=== PATIENT | male | born 1960 ===

== ENCOUNTER 2024-01-24 18:38 | Emergency (ER) | payer OTHER, SELFPAY ==
[2024-01-24 18:39] VITALS: BP 158/86
--- NOTE | 2024-01-24 19:01 | ED.GENMED ---
History of Present Illness
General
Chief Complaint: Abdominal Pain
Source: patient
Exam Limitations: none
Time Seen by Provider: 01/24/24 18:56
Nursing documentation reviewed up to this point in time: agreed with
History of Present Illness
History of Present Illness:
63-year-old male with past medical history of IBS presents emergency to the department today with concerns of epigastric pain, left upper quadrant pain, and belching for the past 7 days. Patient states that he is gotten symptoms of acid reflux
before but has never been like this and usually resolves with Tums. Patient denies any chest pain but states that he will occasionally get some pain at the back of his throat with belching. Patient states that the symptoms do not get worse after
eating certain foods. Patient denies any history of cardiac disease. Patient [place] any family history of cardiac disease. Patient denies any shortness of breath or syncopal episodes. Patient does not have a nursing home assistant administrator. Patient states
that he has been taking lansoprazole 15 mg once daily along with Tums as needed and other [id number] medications. Patient denies daily NSAID use. Patient denies any rectal bleeding, dark tarry stools. Patient denies any nausea or vomiting.
Patient went to urgent care today and was advised to report for the emergency department for further evaluation.
Review of Systems
Review of Systems
All Other Systems: ROS reviewed and negative except as documented in HPI and ROS
Phy Exam
Physical Exam
Physical Exam:
General: Patient is well appearing and in no acute distress; non-toxic
Skin: Warm and dry, no rashes or lesions
Head: Normocephalic, atraumatic
Eyes: Sclera non-icteric. EOMs intact. PERRLA.
Cardiac: Regular rate and rhythm, no murmurs, no tenderness to palpation of the external chest wall
Peripheral Vascular: No lower extremity swelling or edema
Pulm: Normal respiratory effort, no wheezes, rales, rhonchi
Abdomen: No abdominal tenderness to palpation, no palpable masses, no guarding
Neuro: CN II-XII intact, no focal neurologic deficits.
Psychiatric: Appropriate mood and affect.
Course
Orders/Labs/Results
Orders:
Orders
01/24/24 18:43
Electrocardiogram (*1) Urgent
Reason for Study: Chest Pain
EKG- Treatment ONCE
01/24/24 19:17
Pantoprazole [Protonix IV] 40 mg IV NOW STA
01/24/24 19:19
CT Abd/pelvis W Iv Cont Urgent
Comment:
Reason For Exam: LUQ pain
01/24/24 19:23
Complete Blood Count/With Diff Urgent
Comprehensive Metabolic Panel Urgent
Lipase Urgent
Troponin I Urgent
Urinalysis Reflex To Culture Urgent
Date Specimen was Collected: 01/24/24
Time Specimen was Collected: 19:21
Abnormal Lab Results
01/24/24
19:23
MCHC 32.9 L g/dL
(33.0-37.0)
Absolute Monos (auto) 0.7 H 10^3/uL
(0.1-0.6)
Monocytes % 9.5 H %
(1.7-9.3)
BUN 24 H mg/dl
(9-20)
01/24/24 19:23
01/24/24 19:23
Vital Signs
Initial and Last Documented VS:
Initial Vital Signs
Temp Pulse Resp BP Pulse Ox
98 F 67 16 158/86 99
01/24/24 18:39 01/24/24 18:39 01/24/24 18:39 01/24/24 18:39 01/24/24 18:39
Last Documented Vital Signs
Temp Pulse Resp BP Pulse Ox
98 F 64 14 135/96 97
01/24/24 18:39 01/24/24 21:45 01/24/24 21:45 01/24/24 21:02 01/24/24 21:45
MDM/Problems Addressed
Differential Diagnosis Includes:
Differentials include gastritis, duodenitis, angina, gastroenteritis, esophageal cancer, pancreatitis, cholecystitis
MDM/Problems Addressed:
63-year-old male with a past medical history presents emergency department today with persistent belching, sore throat, and abdominal discomfort. He denies chest pain. Was sent by urgent care for further evaluation. Has been taking 50 mg of
lansoprazole daily without relief. CBC and CMP are unremarkable, liver function and lipase within normal limits. EKG shows no ischemic changes, troponin undetectable. CT scan shows no evidence of perforated viscus or pancreatitis. Suspect GERD.
Advised patient to increase his dose of lansoprazole to 30 mg once daily. Discussed importance of GI follow-up, discussed outpatient may need a scope in the future. GI referral provided. Patient stable for discharge.
Chronic conditions affecting care:
n/a
Acute Exacerbation and/or Progression of Chronic Illness:
n/a
*Pulse Oximetry
Patient hypoxic: no
*Critical Care Note
Total Time (30-74mins, 75-104mins- exclusive of procedures): Not Applicable
Data Reviewed
Review of Other/Old Records Reveals: Records (no previous ER physician documentation to review )
Source: patient and records
Patient Management
Escalation/DeEscalation of care consider admission/obs:
admit not indicated, pt stable for discharge
case reviewed with my attending
ED Attending Note
-
Portions of this chart may have been created with voice recognition software.� Occasional wrong word or��sound alike� substitutions may have occurred due to the inherent limitations of voice recognition software.
Discharge Plan
Departure
Patient Disposition: Home (Routine Discharge)
Date of Disposition: 01/24/24
Time of Disposition: 21:41
Patient with high blood pressure during this ER visit?: Yes
Condition: Good
Discharge Problem:
Abdominal pain, epigastric, Dyspepsia
Instructions: Abdominal Pain, BLOOD PRESSURE
Referrals:
Cheryl Delgado CRNP [Family Provider] -
Marley Raymond DO [Active] - Call in 1-3 days for appt
Activity Restrictions/Additional Instructions:
Please schedule an appointment with gastroenterology, you may need an endoscopy for further evaluation of your symptoms.
Please increase lansoprazole to 30 mg once daily. Please schedule a follow up with your PCP to see how you are doing on this dose adjustment.
Please return to the emergency department should you develop chest pain, upper back pain, fevers or chills, rectal bleeding, dark tarry stools, syncopal episodes, weakness in one-sided body versus other, confusion, difficulty speaking, or any other
signs or symptoms worrisome to you.
Interventions
Interventions:
*Risk Screen - Suicide Last Done: 01/24/24 18:42
*General Assessment Last Done: 01/24/24 19:06
*Neglect/Abuse Screening Last Done: 01/24/24 18:42
ED- Fall Risk Assessment Last Done: 01/24/24 19:20
*ED COVID-19 Vaccine History Last Done: 01/24/24 18:39
*Nursing Disposition Last Done: 01/24/24 22:04
LO-Vefwdu-Spgpjybmrf Assessment Last Done: 01/24/24 19:25
Discharge Date and Time
Discharge Date/Time: 01/24/24 22:05
Print Language: [place]
[2024-01-24 19:05] VITALS: BMI 26.8
[2024-01-24 19:26] VITALS: BP 156/82
[2024-01-24] MEDS: PROTONIX IV 40 MG IV (19:26)
[2024-01-24 19:38] LABS: % Basophils 0.3 % (0-2); % Eosinophils 0.7 % (0-6); % Immature Granulocytes 0.3 % (0-0.5); % Lymphocytes 23.2 % (20.5-51.1); % Monocytes 9.5 % (1.7-9.3); Absolute Eosinophils 0.1 10^3/uL (0-0.7); Absolute Lymphocytes 1.6 10^3/uL (1.2-3.4); Absolute Monocytes 0.7 10^3/uL (0.1-0.6); Absolute Neutrophils 4.7 10^3/uL (1.4-6.5); Hematocrit 42.9 % (39.0-52.0); Hemoglobin 14.1 g/dL (13.0-18.0); Mean Corp Hgb Conc. 32.9 g/dL (33.0-37.0); Mean Corpuscular Hgb 29.5 pg (27.0-31.0); Mean Corpuscular Volume 89.7 fL (80.0-94.0); Mean Platelet Volume 9.9 fL (7.4-10.4); Nucleated Red Blood Cells % 0 % (-); Platelet Count 228 10^3/uL (130-400); Red Blood Cell Count 4.78 10^6/uL (4.70-6.10); Red Cell Dist. Width 13.1 % (11.5-14.5); Urine Albumin Negative (Neg - Trace); Urine Bilirubin Negative (Negative); Urine Character Clear (Clear); Urine Color Straw; Urine Glucose Negative (Negative); Urine Ketone Negative (Negative); Urine Leukocyte Negative (Negative); Urine Nitrite Negative (Negative); Urine Occult Blood Negative (Negative); Urine Specific Gravity 1.015 (<1.030); Urine Urobilinogen Negative (Neg - 1+)
[2024-01-24 19:50] LABS: ALT (SGPT) 26 U/L (0-50); AST (SGOT) 34 U/L (17-59); Albumin 4.6 g/dl (3.5-5.0); Alkaline Phosphatase 59 U/L (38-126); Blood Urea Nitrogen 24 mg/dl (9-20); Carbon Dioxide 28 mmol/L (22-30); Chloride 102 mmol/L (98-107); Estimated Creatinine Clearance 66 ml/min; Glucose 90 mg/dl (70-99); Lipase 43 U/L (23-300); Sodium 140 mmol/L (135-145); Total Bilirubin 0.7 mg/dl (0.2-1.3); Total Protein 7.3 g/dl (6.3-8.2); eGFR > 60.00
[2024-01-24 20:03] LABS: Troponin I < 0.012 ng/ml
[2024-01-24 21:02] VITALS: BP 135/96
== END 2024-01-24 22:05 | disposition home or self-care (01) ==
LOC: EMR 18:38
PROVIDERS: Physician Assistant; EMERGENCY PHYSICIAN Emergency Medicine; FAMILY PHYSICIAN Nurse Practitioner Primary Care
DX: R10.13 Epigastric pain (principal)
CPT/HCPCS: 99284; 96374; 74177; 80053; 81003; 83690; 84484; 85025; 93005; Q9967